=== PATIENT | male | born 2005 | race Hispanic/Latino ===

== ENCOUNTER 2024-10-27 18:32 | Emergency (ER) | payer MEDICARE, SELFPAY ==
[2024-10-27 18:38] VITALS: BP 127/85
[2024-10-27 19:27] VITALS: BP 127/76
[2024-10-27 20:00] VITALS: BP 138/94
[2024-10-27] MEDS: NSS 1000 IV (21:01)
[2024-10-27 21:14] LABS: % Basophils 0.7 % (0-2); % Eosinophils 0.6 % (0-6); % Immature Granulocytes 0.3 % (0-0.5); % Lymphocytes 24.8 % (20.5-51.1); % Monocytes 7.8 % (1.7-9.3); % Neutrophils 65.8 % (42.2-75.2); Absolute Basophils 0.1 10^3/uL (0-0.2); Absolute Eosinophils 0.1 10^3/uL (0-0.7); Absolute Lymphocytes 2.2 10^3/uL (1.2-3.4); Absolute Monocytes 0.7 10^3/uL (0.1-0.6); Absolute Neutrophils 5.9 10^3/uL (1.4-6.5); Hematocrit 46.8 % (39.0-52.0); Hemoglobin 16.4 g/dL (13.0-18.0); Mean Corpuscular Hgb 29.1 pg (27.0-31.0); Mean Corpuscular Volume 83.1 fL (80.0-94.0); Mean Platelet Volume 10.3 fL (7.4-10.4); Nucleated Red Blood Cells % 0 % (-); Platelet Count 401 10^3/uL (130-400); Red Blood Cell Count 5.63 10^6/uL (4.70-6.10); Red Cell Dist. Width 12.5 % (11.5-14.5)
[2024-10-27 21:25] LABS: Amphetamines Negative (Negative); Barbiturates Negative (Negative); Benzodiazepines Positive (Negative); Buprenorphine Negative (Negative); Cocaine Negative (Negative); Marijuana Negative (Negative); Methadone Negative (Negative); Methamphetamines Negative (Negative); Opiates Negative (Negative); Phencyclidine Negative (Negative); Tricyclic Antidepressants Negative (Negative)
[2024-10-27 21:33] LABS: ALT (SGPT) 27 U/L (0-50); AST (SGOT) 28 U/L (17-59); Acetaminophen < 10 ug/ml (10-30); Albumin 4.7 g/dl (3.5-5.0); Alcohol None Detected; Alkaline Phosphatase 63 U/L (38-126); Blood Urea Nitrogen 9 mg/dl (9-20); Calcium 9.6 mg/dl (8.4-10.2); Carbon Dioxide 33 mmol/L (22-30); Chloride 102 mmol/L (98-107); Glucose 76 mg/dl (70-99); Magnesium 2.3 mg/dl (1.6-2.3); Salicylate < 1.0 mg/dl (2.0-20.0); Sodium 142 mmol/L (135-145); Total Bilirubin 1.4 mg/dl (0.2-1.3); Total Protein 7.4 g/dl (6.3-8.2); eGFR > 60.00
[2024-10-27 21:34] LABS: Fentanyl, Urine Negative (Negative)
[2024-10-27 22:00] VITALS: BP 117/72
--- NOTE | 2024-10-27 23:39 | ED.GENMED ---
History of Present Illness
General
Chief Complaint: Overdose Intentional
Source: patient
Exam Limitations: none
Time Seen by Provider: 10/27/24 19:02
Nursing documentation reviewed up to this point in time: agreed with
History of Present Illness
History of Present Illness:
19-year-old male past medical history of ADHD anxiety and autism presenting to the emergency department today with concerns of trying to harm himself by taking 10-15 hydroxyzine 25 mg tabs a few hours prior to arrival. Claims that he feels very
drowsy but no additional symptoms otherwise. He did take this in attempt to harm himself. Has had fleeting thoughts of suicide in the past. Denies any thoughts of harming anybody else. He denies following up with any outpatient doctors or taking
any psychiatric meds.
Review of Systems
Review of Systems
Allergies reviewed?: Yes
All Other Systems: ROS reviewed and negative except as documented in HPI and ROS
Phy Exam
Physical Exam
Physical Exam:
GENERAL: Alert , in no apparent distress
EYE: pupils equal and reactive
NECK: Supple, no significant adenopathy.
ENT: o/p clr, mmm.
CARDIAC: Regular rate and rhythm .
LUNGS: Clear breath sounds bilaterally, no acute respiratory distress, no wheezes/rales/rhonchi
ABDOMEN: Soft, without focal tenderness, no r/g, no cvat
NEUROLOGICAL: Alert and oriented, no focal neuro deficits
SKIN: Warm and dry, skin intact.
MUSCULOSKELETAL: No edema, well perfused.
PSYCH: Normal and appropriate interaction.
Course
Orders/Labs/Results
Orders:
Orders
10/27/24 18:44
1:1 Observation - Suicide/ Violent Behavior As Directed
Crisis Consult Urgent
Reason for Consult: overdose, SI
10/27/24 19:41
EKG [Electrocardiogram (*1)] Urgent
Reason for Study: QTc Monitoring
10/27/24 19:42
EKG- Treatment ONCE
0.9% Sodium Chloride 1000 ml [Nss] 1,000 ml IV BOLUS
10/27/24 20:57
Acetaminophen Urgent
Alcohol Urgent
CBC/With Diff [Complete Blood Count/With Diff] Urgent
CMP [Comprehensive Metabolic Panel] Urgent
Magnesium Urgent
Salicylate Urgent
10/27/24 21:02
Fentanyl, Urine Urgent
Urine Drug Abuse Screen Urgent
Date Specimen was Collected: 10/27/24
Time Specimen was Collected: 21:01
Abnormal Lab Results
10/27/24 10/27/24
20:57 21:02
Plt Count 401 H 10^3/uL
(130-400)
Absolute Monos (auto) 0.7 H 10^3/uL
(0.1-0.6)
Carbon Dioxide 33 H mmol/L
(22-30)
Total Bilirubin 1.4 H mg/dl
(0.2-1.3)
Salicylates < 1.0 L mg/dl
(2.0-20.0)
Acetaminophen < 10 L ug/ml
(10-30)
U Benzodiazepines Scrn Positive H
(Negative)
10/27/24 20:57
10/27/24 20:57
Vital Signs
Initial and Last Documented VS:
Initial Vital Signs
Temp Pulse Resp BP Pulse Ox
98.1 F 106 18 127/85 99
10/27/24 18:38 10/27/24 18:38 10/27/24 18:38 10/27/24 18:38 10/27/24 18:38
Last Documented Vital Signs
Temp Pulse Resp BP Pulse Ox
98.1 F 100 15 117/72 100
10/27/24 18:38 10/27/24 22:15 10/27/24 22:15 10/27/24 22:00 10/27/24 21:15
MDM/Problems Addressed
MDM/Problems Addressed:
19-year-old male presenting to the emergency department today with concerns of overdose of hydroxyzine 10 to 1525 mg tabs and attempt to harm himself. Does have thoughts of harming himself and has had fleeting suicidal thoughts in the past. Denies
any homicidal thoughts. Mildly tachycardic here in no distress somewhat drowsy on examination Case discussed with poison control recommending 6-hour observation which concluded at roughly the time of my assessment. EKG without emergent findings
labs unremarkable. Plan for psychiatric placement.
*Critical Care Note
Total Time (30-74mins, 75-104mins- exclusive of procedures): Not Applicable
ED Attending Note
-
Portions of this chart may have been created with voice recognition software.� Occasional wrong word or��sound alike� substitutions may have occurred due to the inherent limitations of voice recognition software.
Discharge Plan
Departure
Patient Disposition: Psych Facility
Date of Disposition: 10/27/24
Time of Disposition: 23:41
Patient with high blood pressure during this ER visit?: No
Condition: Fair
Covid-19: Not Applicable
Discharge Problem:
Suicidal behavior with attempted self-injury
Interventions
Interventions:
*Risk Screen - Suicide Last Done: 10/27/24 18:38
*General Assessment Last Done: 10/27/24 18:38
*Neglect/Abuse Screening Last Done: 10/27/24 20:00
*ED COVID-19 Vaccine History Last Done: 10/27/24 18:38
ED- Cardiac Assessment Last Done: 10/27/24 21:00
ED- Neurological Assessment Last Done: 10/27/24 21:00
ED-Psychological Assessment Last Done: 10/27/24 21:00
ED- Pulmonary Assessment Last Done: 10/27/24 21:00
Discharge Date and Time
Print Language: [id number]
== END 2024-10-28 01:44 ==
LOC: EMR 18:32
PROVIDERS: Physician Assistant; EMERGENCY PHYSICIAN Student in an Organized Health Care Education/Training Program; FAMILY PHYSICIAN Student in an Organized Health Care Education/Training Program
DX: R45.851 Suicidal ideations (principal); F84.0 Autistic disorder; F41.9 Anxiety disorder, unspecified; F90.9 Attention-deficit hyperactivity disorder, unspecified type
CPT/HCPCS: 99283; 96360; 80053; 80143; 80179; 80306; 80307; 82077; 83735; 85025; 93005